=== PATIENT | male | born 1985 | race Caucasian/White ===

== ENCOUNTER 2023-08-30 11:30 | Outpatient (OUT) | payer BC, SELFPAY ==
--- NOTE | 2023-08-30 11:32 | XR_ITS ---
The [address] [address] Patient Name: BRENDAN ACEVEDO MRN: [id number] date: 1985 Sex: M Assigned Patient Location: RAD Current Patient Location: RAD Accession/Order Number: [id number] Exam Date: 08/30/2023 11:35 Report Date: 08/31/2023 11:32 At the request of: JOSSUE SYED Procedure: XR elbow RT min 3V EXAM: XR elbow RT min 3V HISTORY: Right Elbow Pain M25.521 COMPARISON: None. TECHNIQUE: 3 views of the right elbow were obtained. FINDINGS: Anterior fat pad is grossly unremarkable, no obvious posterior fat pad is seen. No definite acute fracture or dislocation. No significant focal osseous or articular abnormalities are identified. Soft tissues are grossly within normal limits. XR/XR elbow RT min 3V IMPRESSION: Right elbow study is grossly unremarkable. Follow up as needed. Electronically authenticated by: LES BROCK Date: 08/31/2023 11:32
== END 2023-08-30 11:31 | disposition home or self-care (01) ==
LOC: RAD 11:30
PROVIDERS: Visit Provider Orthopaedic Surgery
DX: M25.521 Pain in right elbow (principal)
CPT/HCPCS: 73080

== ENCOUNTER 2023-10-06 06:30 | Outpatient (OUT) | payer BC, SELFPAY ==
--- NOTE | 2023-10-06 | MR_ITS ---
[address] [address] Patient Name: BRENDAN ACEVEDO MRN: [id number] date: 1985 Sex: M Assigned Patient Location: [facility] Current Patient Location: [facility] Accession/Order Number: [id number] Exam Date: 10/06/2023 07:10 Report Date: 10/06/2023 09:21 At the request of: JOSSUE SYED Procedure: MR elbow RT wo con EXAM: MR elbow RT wo con HISTORY: Right elbow pain. Right medial and proximal elbow pain after lifting heavy object and feeling a pop. Symptoms for 4 months. COMPARISON: Comparison made to right elbow radiographs dated 08/30/2023. TECHNIQUE: Multiplanar multisequence imaging of the right elbow performed without the administration of intravenous or intra-articular gadolinium contrast. FINDINGS: There is mild motion degradation. Osseous alignment of the right elbow is anatomic. There is no acute displaced fracture or dislocation. Bone marrow signal is normal. The anterior compartment including the biceps and brachialis muscles and tendons are normal. The posterior compartment including the triceps and anconeus muscles and tendons are normal. There is a minimal partial undersurface tear of the right common extensor tendon at the right lateral epicondyle. There is mild tendinopathy and small focal partial tear of the right flexor-pronator wad at its attachment onto the right medial epicondyle. The ulnar collateral ligament is normal. The radial collateral ligament and lateral ulnar collateral ligament are normal and intact. There is no right elbow effusion. The right ulnar nerve within the cubital tunnel is normal. MR/MR elbow RT wo con IMPRESSION: 1. No acute osseous abnormality of the right elbow. 2. Intact right biceps and brachialis tendons with normal muscle bulk. 3. Intact right triceps and anconeus tendons with normal muscle bulk. 4. Minimal partial undersurface tear of the right common extensor tendon at the right lateral epicondyle. 5. Mild tendinopathy and small focal partial tear of the right flexor-pronator wad at its attachment onto the right medial epicondyle. 6. Intact medial and lateral right elbow ligaments. 7. No right elbow effusion. Note that examination is somewhat limited by motion degradation. Electronically authenticated by: LEEANNE LINARES Date: 10/06/2023 09:21
--- NOTE | 2023-10-06 | XR_ITS ---
The [address] [address] Patient Name: BRENDAN ACEVEDO MRN: [id number] date: 1985 Sex: M Assigned Patient Location: RAD Current Patient Location: RAD Accession/Order Number: [id number] Exam Date: 10/06/2023 06:50 Report Date: 10/06/2023 07:21 At the request of: JOSSUE SYED Procedure: XR foreign body eye EXAMINATION: XR foreign body eye HISTORY: rule out foreign body of eye COMPARISON: No relevant comparison available. FINDINGS: ORBITS: Negative for a metallic foreign body. OTHER: Negative. XR/XR foreign body eye IMPRESSION: 1. No metallic foreign body within the orbits. Electronically authenticated by: JOSSUE SMITH Date: 10/06/2023 07:21
--- OUTSIDE RECORDS SUMMARY | 2023-10-06 06:34 | XMS_ITS | CCD ---
Author Name Unknown Address [address] [place] [address] Organization [facility] Care Team Providers Care Rn House Supervisor Name Role Phone Bee Huynh APRN, CNP Primary Care Provider Allergies Allergy Classification Reported Allergen(s) Allergy Type Date of Onset Reaction(s) Facility (1 source) Penicillins Propensity to adverse reactions to drug 05-13-2015 [employer] Problems Problem Classification Problem Date Documented Da te Episodic/Chronic Esophageal disorders (1 source) Gastro-esophageal reflux disease with esophagitis; Translations: [Reflux esophagitis] 05-13-2015 Chronic Mood disorders (1 source) Depressive disorder; Translations: [Other specified depressive episodes] 05-13-2015 Chronic Other male genital disorders (1 source) Secondary erectile dysfunction; Translations: [Male erectile dysfunction, unspecified] 05-13-2015 Chronic Residual codes; unclassified (1 source) Feeling nervous; Translations: [Nervousness] 06-27-2015 Episodic Results Test Name Value Interpretation Reference Range [facility] it Basic Metabolic Panelon 06-27 Anion gap [Moles/Vol] 11 mmol/L 9 - 17 mmol/L [employer] Calcium [Mass/Vol] 9.3 mg/dL 8.6 - 10. 4 mg/dL [facility] Chloride [Moles/Vol] 103 mmol/L 98 - 107 mmol/L [employer] [facility] CO2 [Moles/Vol] 25 mmol/L 20 - 31 mmol/L [facility] [employer] [facility] [employer] [facility] Creatinine [Mass/Vol] 0.84 mg/dL 0.7 - 1.2 mg/dL [employer] GFR/1.73 sq M.predicted MDRD (S/P/Bld) [Vol rate/Area] - PINF [facility] Comment on above: Effective Jun 29, 2022 These results are not intended for use in patients <18 years of age. eGFR results are calculated without a race factor using the 2020 CKD-EPI equation. Careful clinical correlation is recommended, particularly when comparing to results calculated using previous equations. The CKD-EPI equation is less accurate in patients with extremes of muscle mass, extra-renal metabolism of creatine, excessive creatine ingestion, or following therapy that affects renal tubular secretion. Glucose [Mass/Vol] 106 mg/dL High 70 - 99 mg/dL [facility] Potassium [Moles/Vol] 4.4 mmol/L 3.7 - 5.3 mmol/L [facility] Sodium [Moles/Vol] 139 mmol/L 135 - 144 mmol/L [facility] Urea nitrogen (BldV) [Mass/Vol] 14 mg/dL 6 - 20 mg/dL [facility] CBC with Auto Differentialon 07-09-2022 Absolute Eos # 0.15 [place] [facility] Absolute Immature Granulocyte 0.03 [facility] Absolute Lymph # 1.41 [facility] Absolute [place] # 0.50 [facility] Basophils (Bld) [#/Vol] 0.05 10*3/uL [facility] Basophils/100 WBC (Bld) 1 % 0 - 2 % [facility] Eosinophils/100 WBC (Bld) 2 % 1 - 4 % [facility] Hematocrit (Bld) [Volume fraction] 46.5 % 40.7 - 50.3 % [facility] Hemoglobin (Bld) [Mass/Vol] 16.5 g/dL 13 - 17 g/dL [facility] Immature granulocytes/100 WBC (Bld) 1 % High 0 [facility] Interpretation and review of laboratory results Abnormal [facility] Lymphocytes/100 WBC (Bld) 22 % Low 24 - 43 % [facility] MCH (RBC) [Entitic mass] 32.4 pg 25.2 - 33.5 pg [facility] MCHC (RBC) [Mass/Vol] 35.5 g/dL High 28.4 - 34.8 g/dL [facility] MCV (RBC) [Entitic vol] 91.2 fL 82.6 - 102.9 fL [facility] Monocytes/100 WBC (Bld) 8 % 3 - 12 % [facility] NRBC Automated 0.0 0.0 per 100 WBC [facility] Platelet distribution width (Bld) [Ratio] 12.6 % 11.8 - 14.4 % [facility] Platelet mean volume (Bld) [Entitic vol] 11.4 fL 8.1 - 13.5 fL [facility] Platelets (Bld) [#/Vol] 212 10*3/uL [facility] RBC (Bld) [#/Vol] 5.10 10*6/uL 4.21 - 5.7 7 m/uL [facility] Segmented neutrophils/100 WBC (Bld) 66 % High 36 - 65 % [facility] Segs Absolute 4.29 [facility] WBC (Bld) [#/Vol] 6.4 10*3/uL [facility] Lipid Panelon 07-09-2022 Cholesterol [Mass/Vol] 205 mg/dL High NINF - 200 mg/dL [facility] Comment on above: Cholesterol Guidelines: <200 Desirable 200-240 Borderline >240 Undesirable Cholesterol in HDL [Mass/Vol] 38 mg/dL Low 40 - PINF mg/dL [facility] Comment on above: HDL Guidelines: <40 Undesirable 40-59 Borderline >59 Desirable Cholesterol in LDL [Mass/Vol] 93 mg/dL 0 - 130 mg/dL [facility] Comment on above: LDL Guidelines: <100 Desirable 100-129 Near to/above Desirable 130-159 Borderline >159 Undesirable Direct (measured) LDL and calculated LDL are not interchangeable tests. Cholesterol.total/Ch olesterol in HDL [Mass ratio] 5.4 {ratio} High NINF - 5 [facility] Triglyceride [Mass/Vol] 372 mg/dL High NINF - 150 mg/dL [facility] Comment on above: Triglyceride Guidelines: <150 Desirable 150-199 Borderline 200-499 High >499 Very high Based on AHA Guidelines for fasting triglyceride, June 2012. No Panel Informationon 07-09 Interpretation and review of laboratory results Abnormal [facility] [employer] [facility] [employer] Encounters Encounter Date Encounter Type Care Provider Facility Start: 07-09-2022 End: 07-09-2022 Patient encounter status Bee Garcia QUALITY CONTROL ASSOCIATE - WIND UP OPERATOR Work Phone: [facility] [employer] [facility] Start: 07-09-2022 End: 07-09-2022 Subsequent hospital visit by physician Bee Garcia APRN - WIND UP OPERATOR Work Phone: [facility] Comment on above: Routine general medi vijay examination at a health care facility Procedures Date Procedure Procedure Detail Performing Clinician Start: 07-09-2022 Basic metabolic pane l calcium total Bee Garcia QUALITY CONTROL ASSOCIATE - WIND UP OPERATOR Work Phone: Start: 07-09-2022 Lipid panel Bee Irene ller QUALITY CONTROL ASSOCIATE - WIND UP OPERATOR Work Phone: Plan of Treatment Date Care Activity Detail Author Start: 07-09-2023 End: 07-09-2023 Patient encounter procedure 07/09/2023 Office Visit Internal Medicine Bee Garcia, KHANH Cortez CNP [address] [place] [address] Michael Ahn Start: 07-08-2023 Depression Monitoring [facility] [employer] Start: 07-08-2023 Influenza vaccination Flu vaccine (# 1) [employer] Comment on above: Postponed from 04/27 (Patient Refused) Start: 05-12-2023 COVID-19 Vaccine (#1) COVID-19 Vacci ne (#1) [employer] Comment on above: Postponed from 03/23 (Not Indicated) Start: 07-29-2022 DTaP/Tdap/Td vaccine (1 - Tdap) DTaP/Tdap/Td vaccine (1 - Tdap) [employer] Comment on above: Postponed from 09/22 (Not Indicated) Start: 2018 Diabetes screen Diabetes screen [employer] Start: 2001 Hepatitis C screening Hepatitis C sc reen [employer] Start: 1998 HIV screening HIV screen [employer] Payers Date Payer Category Payer Unknown BCBS BCBS - [place] P PO [id number] 2022-Present [phone] [address] [place] [address] [id number] Social History Date Type Detail Facility Start: 05-12-2022 Tobacco smoking stat [facility] Ex-smoker [facility] Phone: History of tobacco use Current smoker [facility] Phone: Start: 05-12-2022 Tobacco use and exposure Former smokeless tobacco user [employer] Phone: End: 09-27-2018 History of tobacco use [employer] [facility] Phone: Start: 07-08-2022 Alcohol intake Current drinke r of alcohol (finding) [facility] Phone: Start: 05-12-2022 History SDOH Alcohol Comment social [facility] Phone: Start: 07-08-2022 History SDOH Financial 5 [facility] Phone: Start: 07-08-2022 History SDOH Food Worry 1 [employer] Phone: Start: 1985 Sex Assigned At Not on file B [facility] [employer] [facility] [employer] Phone: Evaluation note Note Date & Type Note Facility Evaluation note Diagnosis Routine general medical examination at a health care facility documented in this encounter [facility] Phone: Additional Source Comments Care Teams (unrecognized sec tion and content) Rn House Supervisor Relationship Specialty Start Date End Date Bee Garcia APRN - WIND UP OPERATOR [address] [place] [address] PCP - General Family Medicine 07/07/22 FOR RECORDS PERTAINING TO PATIENTS WHO ARE OR HAVE BEEN ENROLLED IN A CHEMICAL DEPENDENCY/SUBSTANCEABUSE PROGRAM, SOME INFORMATION MAY BE OMITTED. This clinical summary was aggregated from multiple sources. Caution should be exercised in using it in the provision of clinical care. This summary normalizes information from multiple sources, and as a consequence, information in this document may materially change the coding, format and clinical context of patient data. In addition, data may be omitted in some cases. CLINICAL DECISIONS SHOULD BE BASED ON THE PRIMARY CLINICAL RECORDS. [facility] [employer] [facility]. provides no warranty or guarantee of the accuracy or completeness of information in this document.
== END 2023-10-06 06:31 | disposition home or self-care (01) ==
LOC: RAD 06:32
PROVIDERS: PCP Internal Medicine; Visit Provider Orthopaedic Surgery
DX: T15.02XA Foreign body in cornea, left eye, initial encounter (principal); T15.01XA Foreign body in cornea, right eye, initial encounter; M25.521 Pain in right elbow
CPT/HCPCS: 70030; 73221